=== PATIENT | female | born 1990 | race African-American/Black ===

== ENCOUNTER 2017-01-11 10:57 | Emergency (ER) | payer SELFPAY ==
[~2017-01-11] VITALS: Ht 152.4 cm; Wt 87.0 kg
[2017-01-11 11:54] LABS: HCG SERUM/URINE (NEG/POS) POSITIVE (NEGATIVE); URINE BILIRUBIN - DIPSTICK NEGATIVE (NEGATIVE); URINE BLOOD DIPSTICK SMALL (NEGATIVE); URINE COLOR YELLOW; URINE GLUCOSE - DIPSTICK NEGATIVE (NEGATIVE); URINE KETONE >=80 mg/dL (NEGATIVE); URINE NITRITE - DIPSTICK NEGATIVE (Negative); URINE PROTEIN - DIPSTICK 100 mg/dL (NEG-TRACE); URINE SPECIFIC GRAVITY >=1.030; URINE UROBILINOGEN - DIPSTICK 0.2 E.U./dL (0.2)
[2017-01-11 12:07] LABS: URINE LEUK ESTERASE SMALL (NEGATIVE)
[2017-01-11 12:08] LABS: URINE BACTERIA FEW hpf; URINE CLARITY CLOUDY; URINE SQUAMOUS EPITHELIAL CELL MANY EPI/hpf (0-FEW)
[2017-01-11] MEDS ORDERED: CEPHALEXIN500 MG PO (13:52)
[2017-01-11 14:18] VITALS: BP 126/73
== END 2017-01-11 14:18 | disposition home or self-care (01) | DRG 781 ==
LOC: ED 10:57
PROVIDERS: Emergency Medicine
DX: O23.41 Unspecified infection of urinary tract in pregnancy, first trimester (principal); O24.311 Unspecified pre-existing diabetes mellitus in pregnancy, first trimester; E11.9 Type 2 diabetes mellitus without complications; Z3A.01 Less than 8 weeks gestation of pregnancy

== ENCOUNTER 2017-01-16 11:32 | Emergency (ER) | payer SELFPAY ==
[~2017-01-16] VITALS: Ht 152.4 cm; Wt 100.0 kg
[~2017-01-16 11:32] MED LIST: CEPHALEXIN500 MG PO
[2017-01-16] MEDS ORDERED: MONISTAT VA (12:30)
[2017-01-16 13:40] VITALS: BP 130/77
== END 2017-01-16 13:40 | disposition home or self-care (01) | DRG 781 ==
LOC: ED 11:32
DX: O98.811 Other maternal infectious and parasitic diseases complicating pregnancy, first trimester (principal); R10.2 Pelvic and perineal pain; Z3A.01 Less than 8 weeks gestation of pregnancy

== ENCOUNTER 2017-02-10 10:50 | Emergency (ER) | payer MEDICAID ==
[~2017-02-10] VITALS: Ht 152.4 cm; Wt 88.0 kg
[~2017-02-10 10:50] MED LIST changes: +MONISTAT VA
[2017-02-10 11:43] LABS: URINE BILIRUBIN - DIPSTICK NEGATIVE (NEGATIVE); URINE BLOOD DIPSTICK NEGATIVE (NEGATIVE); URINE COLOR YELLOW; URINE GLUCOSE - DIPSTICK 500 mg/dL (NEGATIVE); URINE KETONE 15 mg/dL (NEGATIVE); URINE LEUK ESTERASE NEGATIVE (NEGATIVE); URINE NITRITE - DIPSTICK NEGATIVE (Negative); URINE PROTEIN - DIPSTICK NEGATIVE (NEG-TRACE); URINE SPECIFIC GRAVITY 1.025; URINE UROBILINOGEN - DIPSTICK 0.2 E.U./dL (0.2)
[2017-02-10 11:46] LABS: URINE CLARITY CLEAR
[2017-02-10 12:56] LABS: HEMATOCRIT 34.5 % (37.0-47.0); HEMOGLOBIN 11.8 g/dl (12.0-16.0); IMMATURE GRANULOCYTES 0.1 % (0.0-1.0); MEAN CELL VOLUME 88.9 fL CALC (80.0-100.0); MEAN CORPUSCULAR HGB 30.4 pG CALC (26.0-32.0); MEAN CORPUSCULAR HGB CONC 34.2 g/L CALC (32.0-36.0); NEUT# 5.14 thou/uL (2.00-7.15); RED BLOOD COUNT 3.88 mill/uL (4.20-5.60); RED CELL DISTRI WIDTH 12.5 % (11.5-15.5)
[2017-02-10 13:15] LABS: ALKALINE PHOSPHATASE 49 u/l (38-126); ANION GAP 17 (6-22 (CALC)); BILIRUBIN, TOTAL 0.2 mg/dL (0.0-1.4); BUN 4 mg/dL (7-17); BUN/CREATININE RATIO 10 (12-20 (CALC)); CALCIUM 9.4 mg/dL (8.4-10.2); CARBON DIOXIDE 19 mmol/l (22-30); CHLORIDE 104 mmol/l (95-108); CREATININE 0.5 mg/dL (0.5-1.0); GFR > 60 ML/MIN (>=60 (CALC)); GFR FOR AFR.AMER. > 60 ML/MIN (>=60 (CALC)); GLUCOSE 219 mg/dL (65-105); POTASSIUM 3.7 mmol/l (3.5-5.1); SGOT/AST 19 u/l (14-36); SGPT/ALT 22 u/l (9-52); SODIUM 137 mmol/l (137-146); TOTAL PROTEIN 7.2 g/dL (6.3-8.2)
[2017-02-10 13:34] LABS: BETA-HCG, QUANT(RESULT NUMBER) 24158 mIU/mL
[2017-02-10 14:28] VITALS: BP 114/55
== END 2017-02-10 14:28 | disposition home or self-care (01) | DRG 782 ==
LOC: ED 10:50
PROVIDERS: Emergency Medicine
DX: O36.5910 Maternal care for other known or suspected poor fetal growth, first trimester, not applicable or unspecified (principal); R10.30 Lower abdominal pain, unspecified; R10.9 Unspecified abdominal pain; Z3A.09 9 weeks gestation of pregnancy; R11.0 Nausea

== ENCOUNTER 2017-02-16 15:15 | Emergency (ER) | payer MEDICAID ==
[~2017-02-16] VITALS: Ht 152.4 cm; Wt 87.0 kg
[2017-02-16 16:35] LABS: HEMATOCRIT 35.6 % (37.0-47.0); IMMATURE GRANULOCYTES 0.4 % (0.0-1.0); MEAN CELL VOLUME 89.4 fL CALC (80.0-100.0); MEAN CORPUSCULAR HGB 30.2 pG CALC (26.0-32.0); MEAN CORPUSCULAR HGB CONC 33.7 g/L CALC (32.0-36.0); NEUT# 4.79 thou/uL (2.00-7.15); RED BLOOD COUNT 3.98 mill/uL (4.20-5.60); RED CELL DISTRI WIDTH 12.3 % (11.5-15.5)
[2017-02-16 16:52] LABS: ALBUMIN 4.3 g/dL (3.2-5.0); ALKALINE PHOSPHATASE 53 u/l (38-126); ANION GAP 18 (6-22 (CALC)); BILIRUBIN, TOTAL 0.3 mg/dL (0.0-1.4); BUN 7 mg/dL (7-17); BUN/CREATININE RATIO 19 (12-20 (CALC)); CALCIUM 9.3 mg/dL (8.4-10.2); CARBON DIOXIDE 22 mmol/l (22-30); CHLORIDE 102 mmol/l (95-108); CREATININE 0.4 mg/dL (0.5-1.0); GFR > 60 ML/MIN (>=60 (CALC)); GFR FOR AFR.AMER. > 60 ML/MIN (>=60 (CALC)); GLUCOSE 129 mg/dL (65-105); POTASSIUM 3.5 mmol/l (3.5-5.1); SGOT/AST 23 u/l (14-36); SGPT/ALT 20 u/l (9-52); SODIUM 138 mmol/l (137-146); TOTAL PROTEIN 7.7 g/dL (6.3-8.2)
[2017-02-16 17:04] LABS: URINE BILIRUBIN - DIPSTICK NEGATIVE (NEGATIVE); URINE BLOOD DIPSTICK LARGE (NEGATIVE); URINE COLOR YELLOW; URINE GLUCOSE - DIPSTICK NEGATIVE (NEGATIVE); URINE KETONE 15 mg/dL (NEGATIVE); URINE NITRITE - DIPSTICK NEGATIVE (Negative); URINE PH 5.5 (4.5-8.0); URINE PROTEIN - DIPSTICK 30 mg/dL (NEG-TRACE); URINE SPECIFIC GRAVITY 1.025; URINE UROBILINOGEN - DIPSTICK 0.2 E.U./dL (0.2)
[2017-02-16 17:05] LABS: URINE CLARITY CLOUDY; URINE LEUK ESTERASE SMALL (NEGATIVE)
[2017-02-16] MEDS ORDERED: MACROBID100 MG PO (17:09)
[2017-02-16 17:15] LABS: URINE RBC TNTC RBC/hpf (0-5); URINE SQUAMOUS EPITHELIAL CELL FEW EPI/hpf (0-FEW)
[2017-02-16 17:37] LABS: BETA-HCG, QUANT(RESULT NUMBER) 23222 mIU/mL
[2017-02-16 18:38] VITALS: BP 125/66
== END 2017-02-16 18:39 | disposition home or self-care (01) | DRG 781 ==
LOC: ED 15:15
PROVIDERS: Emergency Medicine
DX: O23.41 Unspecified infection of urinary tract in pregnancy, first trimester (principal); B96.20 Unspecified Escherichia coli [E. coli] as the cause of diseases classified elsewhere; Z3A.10 10 weeks gestation of pregnancy

== ENCOUNTER 2017-02-24 18:54 | Emergency (ER) | payer MEDICAID ==
[~2017-02-24] VITALS: Ht 152.4 cm; Wt 88.2 kg
[~2017-02-24 18:54] MED LIST changes: +MACROBID100 MG PO
[2017-02-24] MEDS ORDERED: METFORMIN500 MG PO (19:04)
[2017-02-24 20:28] LABS: URINE BILIRUBIN - DIPSTICK NEGATIVE (NEGATIVE); URINE BLOOD DIPSTICK LARGE (NEGATIVE); URINE COLOR YELLOW; URINE GLUCOSE - DIPSTICK 250 mg/dL (NEGATIVE); URINE KETONE >=80 mg/dL (NEGATIVE); URINE LEUK ESTERASE TRACE (NEGATIVE); URINE NITRITE - DIPSTICK NEGATIVE (Negative); URINE PROTEIN - DIPSTICK NEGATIVE (NEG-TRACE); URINE SPECIFIC GRAVITY 1.025; URINE UROBILINOGEN - DIPSTICK 0.2 E.U./dL (0.2)
[2017-02-24 20:30] LABS: HEMATOCRIT 33.2 % (37.0-47.0); HEMOGLOBIN 11.5 g/dl (12.0-16.0); IMMATURE GRANULOCYTES 0.4 % (0.0-1.0); MEAN CORPUSCULAR HGB 30.8 pG CALC (26.0-32.0); MEAN CORPUSCULAR HGB CONC 34.6 g/L CALC (32.0-36.0); NEUT# 4.76 thou/uL (2.00-7.15); RED BLOOD COUNT 3.73 mill/uL (4.20-5.60); RED CELL DISTRI WIDTH 12.3 % (11.5-15.5); URINE CLARITY CLEAR
[2017-02-24 20:38] LABS: URINE SQUAMOUS EPITHELIAL CELL FEW EPI/hpf (0-FEW)
[2017-02-24 20:48] LABS: ALKALINE PHOSPHATASE 63 u/l (38-126); ANION GAP 19 (6-22 (CALC)); BILIRUBIN, TOTAL 0.2 mg/dL (0.0-1.4); BUN 5 mg/dL (7-17); BUN/CREATININE RATIO 12 (12-20 (CALC)); CALCIUM 9.5 mg/dL (8.4-10.2); CARBON DIOXIDE 20 mmol/l (22-30); CHLORIDE 102 mmol/l (95-108); CREATININE 0.4 mg/dL (0.5-1.0); GFR > 60 ML/MIN (>=60 (CALC)); GFR FOR AFR.AMER. > 60 ML/MIN (>=60 (CALC)); GLUCOSE 200 mg/dL (65-105); POTASSIUM 3.5 mmol/l (3.5-5.1); SGOT/AST 24 u/l (14-36); SGPT/ALT 24 u/l (9-52); SODIUM 137 mmol/l (137-146); TOTAL PROTEIN 7.4 g/dL (6.3-8.2)
[2017-02-24 21:31] LABS: BETA-HCG, QUANT(RESULT NUMBER) 18656 mIU/mL
[2017-02-24] MEDS ORDERED: MACRODANTIN100 MG PO (23:43)
[2017-02-24 23:48] VITALS: BP 110/62
== END 2017-02-24 23:55 | disposition home or self-care (01) | DRG 778 ==
LOC: ED 18:54
PROVIDERS: Emergency Medicine
DX: O20.0 Threatened abortion (principal); O23.41 Unspecified infection of urinary tract in pregnancy, first trimester; O24.311 Unspecified pre-existing diabetes mellitus in pregnancy, first trimester; E11.9 Type 2 diabetes mellitus without complications; Z3A.11 11 weeks gestation of pregnancy

== ENCOUNTER 2017-12-11 09:23 | Emergency (ER) | payer SELFPAY ==
[~2017-12-11] VITALS: Ht 152.4 cm; Wt 88.6 kg
[~2017-12-11 09:23] MED LIST changes: +MACRODANTIN100 MG PO; +METFORMIN500 MG PO
[2017-12-11 10:32] LABS: HEMATOCRIT 36.2 % (37.0-47.0); HEMOGLOBIN 12.1 g/dl (12.0-16.0); IMMATURE GRANULOCYTES 0.5 % (0.0-5.0); MEAN CELL VOLUME 88.3 fL CALC (80.0-100.0); MEAN CORPUSCULAR HGB 29.5 pG CALC (26.0-32.0); MEAN CORPUSCULAR HGB CONC 33.4 g/L CALC (32.0-36.0); NEUT# 3.33 thou/uL (2.00-7.15); RED BLOOD COUNT 4.1 mill/uL (4.20-5.60); RED CELL DISTRI WIDTH 14.2 % (11.5-15.5)
[2017-12-11 10:33] LABS: URINE BILIRUBIN - DIPSTICK NEGATIVE (NEGATIVE); URINE BLOOD DIPSTICK NEGATIVE (NEGATIVE); URINE COLOR YELLOW; URINE GLUCOSE - DIPSTICK NEGATIVE (NEGATIVE); URINE KETONE NEGATIVE (NEGATIVE); URINE LEUK ESTERASE NEGATIVE (NEGATIVE); URINE NITRITE - DIPSTICK NEGATIVE (Negative); URINE PH 5.5 (4.5-8.0); URINE PROTEIN - DIPSTICK TRACE mg/dL (NEG-TRACE); URINE SPECIFIC GRAVITY >=1.030; URINE UROBILINOGEN - DIPSTICK 0.2 E.U./dL (0.2)
[2017-12-11 10:38] LABS: URINE CLARITY CLEAR
[2017-12-11 10:56] LABS: ALKALINE PHOSPHATASE 79 u/l (38-126); ANION GAP 18 (6-22 (CALC)); BILIRUBIN, TOTAL 0.2 mg/dL (0.0-1.4); BUN 9 mg/dL (7-17); BUN/CREATININE RATIO 23 (12-20 (CALC)); CARBON DIOXIDE 19 mmol/l (22-30); CHLORIDE 104 mmol/l (95-108); CREATININE 0.4 mg/dL (0.5-1.0); GFR > 60 ML/MIN (>=60 (CALC)); GFR FOR AFR.AMER. > 60 ML/MIN (>=60 (CALC)); LIPASE 106 u/l (23-300); SGOT/AST 25 u/l (14-36); SGPT/ALT 28 u/l (9-52); SODIUM 138 mmol/l (137-146); TOTAL PROTEIN 7.8 g/dL (6.3-8.2)
[2017-12-11 12:25] VITALS: BP 118/66
== END 2017-12-11 12:25 | disposition home or self-care (01) | DRG 392 ==
LOC: ED 09:23
PROVIDERS: Family Medicine
DX: K52.9 Noninfective gastroenteritis and colitis, unspecified (principal); E11.9 Type 2 diabetes mellitus without complications; J45.909 Unspecified asthma, uncomplicated
CPT/HCPCS: Q9967

== ENCOUNTER 2018-02-07 14:33 | Emergency (ER) | payer OTHER ==
[~2018-02-07] VITALS: Ht 152.4 cm; Wt 81.0 kg
[2018-02-07] MEDS ORDERED: LEVOTHYROXIN50 MCG PO (14:48)
[2018-02-07] MEDS ORDERED: GLIPIZIDE10 MG PO (14:49)
[2018-02-07] MEDS ORDERED: PANCREAS MED (14:50)
[2018-02-07 15:18] LABS: URINE BILIRUBIN - DIPSTICK NEGATIVE (NEGATIVE); URINE BLOOD DIPSTICK NEGATIVE (NEGATIVE); URINE COLOR YELLOW; URINE GLUCOSE - DIPSTICK NEGATIVE (NEGATIVE); URINE KETONE TRACE mg/dL (NEGATIVE); URINE LEUK ESTERASE NEGATIVE (NEGATIVE); URINE NITRITE - DIPSTICK NEGATIVE (Negative); URINE PH 5.5 (4.5-8.0); URINE PROTEIN - DIPSTICK NEGATIVE (NEG-TRACE); URINE SPECIFIC GRAVITY 1.025; URINE UROBILINOGEN - DIPSTICK 0.2 E.U./dL (0.2)
[2018-02-07 15:19] LABS: HEMATOCRIT 37.4 % (37.0-47.0); HEMOGLOBIN 12.8 g/dl (12.0-16.0); IMMATURE GRANULOCYTES 0.4 % (0.0-5.0); MEAN CELL VOLUME 90.6 fL CALC (80.0-100.0); MEAN CORPUSCULAR HGB CONC 34.2 g/L CALC (32.0-36.0); NEUT# 3.95 thou/uL (2.00-7.15); RED BLOOD COUNT 4.13 mill/uL (4.20-5.60); RED CELL DISTRI WIDTH 13.1 % (11.5-15.5)
[2018-02-07 15:23] LABS: URINE CLARITY CLEAR
[2018-02-07 15:34] LABS: ALBUMIN 4.5 g/dL (3.2-5.0); ALKALINE PHOSPHATASE 60 u/l (38-126); ANION GAP 16 (6-22 (CALC)); BILIRUBIN, TOTAL 0.3 mg/dL (0.0-1.4); BUN 6 mg/dL (7-17); BUN/CREATININE RATIO 17 (12-20 (CALC)); CARBON DIOXIDE 22 mmol/l (22-30); CHLORIDE 104 mmol/l (95-108); CREATININE 0.4 mg/dL (0.5-1.0); GFR > 60 ML/MIN (>=60 (CALC)); GFR FOR AFR.AMER. > 60 ML/MIN (>=60 (CALC)); LIPASE 114 u/l (23-300); SODIUM 139 mmol/l (137-146); TOTAL PROTEIN 8.4 g/dL (6.3-8.2)
[2018-02-07 15:46] LABS: SGOT/AST 49 u/l (14-36)
[2018-02-07 17:13] LABS: COCAINE NEGATIVE (NEGATIVE); TETRAHYDROCANNABIONOL NEGATIVE (NEGATIVE)
[2018-02-07 17:16] LABS: BARBITURATES NEGATIVE (NEGATIVE); METHADONE NEGATIVE (NEGATIVE); OXCYCODONE NEGATIVE (NEGATIVE); TRICYLIC ANTIDEPRESSANTS POSITIVE (NEGATIVE)
[2018-02-07] MEDS ORDERED: TORADOL PO (18:05)
[2018-02-07] MEDS ORDERED: BENTYL10 MG PO (18:05)
[2018-02-07 18:11] VITALS: BP 130/81
== END 2018-02-07 18:15 | disposition home or self-care (01) ==
LOC: ED 14:33
PROVIDERS: Emergency Medicine
DX: R10.31 Right lower quadrant pain (principal)

== ENCOUNTER 2018-02-25 07:32 | Emergency (ER) | payer SELFPAY ==
[~2018-02-25] VITALS: Ht 152.4 cm; Wt 91.8 kg
[~2018-02-25 07:32] MED LIST changes: +BENTYL10 MG PO; +GLIPIZIDE10 MG PO; +LEVOTHYROXIN50 MCG PO; +PANCREAS MED; +TORADOL PO
[2018-02-25 08:13] LABS: HEMATOCRIT 37.3 % (37.0-47.0); HEMOGLOBIN 12.9 g/dl (12.0-16.0); IMMATURE GRANULOCYTES 0.3 % (0.0-5.0); MEAN CELL VOLUME 91.2 fL CALC (80.0-100.0); MEAN CORPUSCULAR HGB 31.5 pG CALC (26.0-32.0); MEAN CORPUSCULAR HGB CONC 34.6 g/L CALC (32.0-36.0); NEUT# 3.55 thou/uL (2.00-7.15); RED BLOOD COUNT 4.09 mill/uL (4.20-5.60); RED CELL DISTRI WIDTH 12.7 % (11.5-15.5)
[2018-02-25 08:14] LABS: URINE BILIRUBIN - DIPSTICK NEGATIVE (NEGATIVE); URINE BLOOD DIPSTICK LARGE (NEGATIVE); URINE COLOR YELLOW; URINE GLUCOSE - DIPSTICK NEGATIVE (NEGATIVE); URINE KETONE TRACE mg/dL (NEGATIVE); URINE LEUK ESTERASE NEGATIVE (NEGATIVE); URINE NITRITE - DIPSTICK NEGATIVE (Negative); URINE PROTEIN - DIPSTICK 30 mg/dL (NEG-TRACE); URINE SPECIFIC GRAVITY >=1.030; URINE UROBILINOGEN - DIPSTICK 0.2 E.U./dL (0.2)
[2018-02-25 08:22] LABS: URINE BACTERIA FEW hpf; URINE SQUAMOUS EPITHELIAL CELL MODERATE EPI/hpf (0-FEW)
[2018-02-25 08:33] LABS: ALBUMIN 4.4 g/dL (3.2-5.0); ALKALINE PHOSPHATASE 63 u/l (38-126); AMYLASE 85 u/l (30-110); ANION GAP 19 (6-22 (CALC)); BILIRUBIN, TOTAL 0.3 mg/dL (0.0-1.4); BUN 11 mg/dL (7-17); BUN/CREATININE RATIO 25 (12-20 (CALC)); CARBON DIOXIDE 20 mmol/l (22-30); CHLORIDE 102 mmol/l (95-108); CREATININE 0.4 mg/dL (0.5-1.0); GFR > 60 ML/MIN (>=60 (CALC)); GFR FOR AFR.AMER. > 60 ML/MIN (>=60 (CALC)); LIPASE 127 u/l (23-300); POTASSIUM 4.1 mmol/l (3.5-5.1); SGOT/AST 47 u/l (14-36); SODIUM 137 mmol/l (137-146); TOTAL PROTEIN 8.1 g/dL (6.3-8.2)
[2018-02-25] MEDS ORDERED: MIRALAX3350 N1 PO (09:26)
[2018-02-25 09:40] VITALS: BP 130/81
== END 2018-02-25 09:40 | disposition home or self-care (01) | DRG 392 ==
LOC: ED 07:32
PROVIDERS: Family Medicine
DX: K59.00 Constipation, unspecified (principal); E11.9 Type 2 diabetes mellitus without complications; J45.909 Unspecified asthma, uncomplicated

== ENCOUNTER 2018-05-02 10:09 | Emergency (ER) | payer MEDICAID ==
[~2018-05-02] VITALS: Ht 152.4 cm; Wt 85.0 kg
[~2018-05-02 10:09] MED LIST changes: +MIRALAX3350 N1 PO
[2018-05-02 11:02] LABS: URINE BILIRUBIN - DIPSTICK NEGATIVE (NEGATIVE); URINE BLOOD DIPSTICK NEGATIVE (NEGATIVE); URINE COLOR YELLOW; URINE GLUCOSE - DIPSTICK 250 mg/dL (NEGATIVE); URINE KETONE 15 mg/dL (NEGATIVE); URINE LEUK ESTERASE NEGATIVE (NEGATIVE); URINE NITRITE - DIPSTICK NEGATIVE (Negative); URINE PROTEIN - DIPSTICK 100 mg/dL (NEG-TRACE); URINE SPECIFIC GRAVITY >=1.030; URINE UROBILINOGEN - DIPSTICK 0.2 E.U./dL (0.2)
[2018-05-02 11:03] LABS: URINE EPITHELIAL CELLS FEW EPI/hpf (0-FEW); URINE MUCUS FEW hpf (NONE-FEW)
[2018-05-02 11:03] LABS: HEMATOCRIT 39.3 % (37.0-47.0); HEMOGLOBIN 13.2 g/dl (12.0-16.0); IMMATURE GRANULOCYTES 0.5 % (0.0-5.0); MEAN CELL VOLUME 91.4 fL CALC (80.0-100.0); MEAN CORPUSCULAR HGB 30.7 pG CALC (26.0-32.0); MEAN CORPUSCULAR HGB CONC 33.6 g/L CALC (32.0-36.0); NEUT# 4.78 thou/uL (2.00-7.15); RED BLOOD COUNT 4.3 mill/uL (4.20-5.60); RED CELL DISTRI WIDTH 12.5 % (11.5-15.5)
[2018-05-02 11:14] LABS: ALBUMIN 4.5 g/dL (3.2-5.0); ALKALINE PHOSPHATASE 61 u/l (38-126); ANION GAP 21 (6-22 (CALC)); BILIRUBIN, TOTAL 0.4 mg/dL (0.0-1.4); BUN 8 mg/dL (7-17); BUN/CREATININE RATIO 23 (12-20 (CALC)); CARBON DIOXIDE 19 mmol/l (22-30); CHLORIDE 100 mmol/l (95-108); CREATININE 0.3 mg/dL (0.5-1.0); GFR > 60 ML/MIN (>=60 (CALC)); GFR FOR AFR.AMER. > 60 ML/MIN (>=60 (CALC)); LIPASE 80 u/l (23-300); POTASSIUM 3.8 mmol/l (3.5-5.1); SGOT/AST 23 u/l (14-36); SODIUM 135 mmol/l (137-146); TOTAL PROTEIN 8.2 g/dL (6.3-8.2)
[2018-05-02] MEDS ORDERED: MOTRIN400 MG PO (13:16)
[2018-05-02 13:46] VITALS: BP 124/76
== END 2018-05-02 13:46 | disposition home or self-care (01) ==
LOC: ED 10:09
PROVIDERS: Family Medicine
DX: S39.012A Strain of muscle, fascia and tendon of lower back, initial encounter (principal); S29.012A Strain of muscle and tendon of back wall of thorax, initial encounter; E11.9 Type 2 diabetes mellitus without complications; J45.909 Unspecified asthma, uncomplicated; X58.XXXA Exposure to other specified factors, initial encounter; R11.0 Nausea; R10.9 Unspecified abdominal pain
CPT/HCPCS: Q9967

== ENCOUNTER 2018-11-10 14:29 | Emergency (ER) | payer OTHER ==
[~2018-11-10] VITALS: Ht 152.4 cm; Wt 81.0 kg
[~2018-11-10 14:29] MED LIST changes: +KEFLEX500 M1 PO; +MOTRIN400 MG PO; +PYRIDIUM200 MG PO
[2018-11-10] MEDS ORDERED: LAMISIL AT1 % EX (15:14)
[2018-11-10] MEDS ORDERED: NYSTATI1 TOP (15:14)
[2018-11-10 15:20] VITALS: BP 123/79
== END 2018-11-10 15:20 | disposition home or self-care (01) ==
LOC: ED 14:29
DX: B35.6 Tinea cruris (principal)